=== PATIENT | female | born 1965 | race Asian ===

== ENCOUNTER 2016-04-16 18:28 | Outpatient (CLI) | payer OTHER | END 2016-04-16 22:07 | disposition home or self-care (01) | LOC: RAD 18:28 | DX: R76.11 Nonspecific reaction to tuberculin skin test without active tuberculosis (principal) ==

== ENCOUNTER 2017-04-07 17:01 | Emergency (ER) | payer OTHER ==
[~2017-04-07] VITALS: Ht 157.5 cm; Wt 68.0 kg
[2017-04-07] MEDS ORDERED: CLON1TAB18 PO (17:17)
[2017-04-07 17:22] VITALS: BP 148/98; TEMP 98.4
== END 2017-04-07 17:52 | disposition home or self-care (01) ==
LOC: ED 17:01
DX: R42 Dizziness and giddiness (principal)
CPT/HCPCS: 99281

== ENCOUNTER 2017-10-25 14:03 | Outpatient (CLI) | payer OTHER ==
[~2017-10-25 14:03] MED LIST: CLON1TAB18 PO
== END 2017-10-25 21:26 | disposition home or self-care (01) ==
LOC: MAMMO 14:03
DX: Z12.31 Encounter for screening mammogram for malignant neoplasm of breast (principal)

== ENCOUNTER 2019-06-05 09:16 | Outpatient (CLI) | payer OTHER | END 2019-06-05 19:10 | disposition home or self-care (01) | LOC: MAMMO 09:16 | DX: Z12.31 Encounter for screening mammogram for malignant neoplasm of breast (principal) ==

== ENCOUNTER 2020-07-30 09:38 | Outpatient (CLI) | payer OTHER | END 2020-07-30 21:19 | disposition home or self-care (01) | LOC: MAMMO 09:38 | PROVIDERS: ATTEND Internal Medicine | DX: Z12.31 Encounter for screening mammogram for malignant neoplasm of breast (principal) ==

== ENCOUNTER 2022-03-14 11:02 | Outpatient (CLI) | payer BC | END 2022-03-14 20:58 | disposition home or self-care (01) | LOC: RAD 11:02 | PROVIDERS: ATTEND Internal Medicine | DX: Z12.31 Encounter for screening mammogram for malignant neoplasm of breast (principal); Z78.0 Asymptomatic menopausal state ==